=== PATIENT | female | born 1970 | race Two or more races ===

== ENCOUNTER 2016-12-09 08:19 | Inpatient (IN) | payer MEDICAID ==
[~2016-12-09] VITALS: Ht 142.2 cm; Wt 45.4 kg
[2016-12-09] VITALS (15 sets, daily range): BP systolic 101–146; BP diastolic 40–75
[~2016-12-09 08:19] MED LIST: ZOFRAN4 MG/5 ML ORAL
--- NOTE | 2016-12-09 09:03 | Emergency Room Report ---
History of Present Illness General Chief Complaint: Generalized Weakness Source: Patient, Family Member, EMS Present Illness HPI Patient presents acutely agitated and uncomfortable Full history was not able to obtain as the patient refuses to answer further questions Was able to obtain that she has not been taking her insulin she reports that she has been out of it and therefore cannot take it Patient had increased nausea Denies any chest pain or shortness of breath Denies any diarrhea Patient has diffuse abdominal cramping discomfort Denies any neck pain or photophobia Allergies: Coded Allergies: NO KNOWN ALLERGIES (Unverified Allergy, Unknown, 06/28/15) Patient History Past Medical History: see triage record Pertinent Family History: none Reviewed Nursing Documentation: PMH: Agreed, PSxH: Agreed Nursing Documentation-PMH Past Medical History: No History, Except For Hx Diabetes: Yes Hx Seizures: Yes Review of Systems All Other Systems: negative except mentioned in HPI Physical Exam Vital Signs Date Time Temp Pulse Resp B/P Pulse Ox O2 Delivery O2 Flow Rate FiO2 12/09/16 08:17 96.1 114 22 138/61 95 Room Air Sp02 EP Interpretation: reviewed, normal General Appearance: moderate distress - Patient appears acutely uncomfortable Head: normocephalic, atraumatic Eyes: bilateral eye PERRL ENT: dry mucus membranes, other - Extremely poor dentition with gingival irritation Neck: full range of motion, supple Respiratory: lungs clear Cardiovascular #1: regular rate, rhythm, no edema Gastrointestinal: non tender, soft Genitourinary: no CVA tenderness Musculoskeletal: normal inspection Neurologic: alert, oriented x3 Skin: no rash Lymphatic: no adenopathy Procedures Critical Care Time Critical Care Time 40 minutes for multiple re\re evaluations Critical presentation and clinical findings concerning for left ring pathology Not including any procedural time Medical Decision Making Diagnostic Impression: Primary Impression: DKA, type 1 Additional Impression: Hyperosmolarity due to secondary diabetes ER Course Patient presents with elevated glucose Is an insulin diabetic, reports that she has not been taking her medication for over the past one month at this time upon initial presentation appears in acute distress Aggressive IV hydration along with insulin therapy is initiated Patient showing signs of severe dehydration and kidney insufficiency as well At this time requiring further ICU admission Labs Test 12/09/16 08:50 12/09/16 09:45 12/09/16 10:22 White Blood Count 26.3 K/UL (4.8-10.8) Red Blood Count 4.49 M/UL (4.20-5.40) Hemoglobin 12.4 G/DL (12.0-16.0) Hematocrit 45.0 % (37.0-47.0) Mean Corpuscular Volume 100 FL (80-99) Mean Corpuscular Hemoglobin 27.7 PG (27.0-31.0) Mean Corpuscular Hemoglobin Concent 27.6 G/DL (32.0-36.0) Red Cell Distribution Width 15.8 % (11.6-14.8) Platelet Count 358 K/UL (150-450) Mean Platelet Volume 8.3 FL (6.5-10.1) Neutrophils (%) (Auto) % (45.0-75.0) Lymphocytes (%) (Auto) % (20.0-45.0) Monocytes (%) (Auto) % (1.0-10.0) Eosinophils (%) (Auto) % (0.0-3.0) Basophils (%) (Auto) % (0.0-2.0) Differential Total Cells Counted 100 Neutrophils % (Manual) 82 % (45-75) Lymphocytes % (Manual) 14 % (20-45) Monocytes % (Manual) 3 % (1-10) Eosinophils % (Manual) 0 % (0-3) Basophils % (Manual) 0 % (0-2) Band Neutrophils 1 % (0-8) Platelet Estimate Adequate Platelet Morphology Normal Hypochromasia 1+ Anisocytosis 1+ Macrocytosis 1+ Urine Color Pale yellow Urine Appearance Clear Urine pH 5 (4.5-8.0) Urine Specific [place] 1.015 (1.005-1.035) Urine Protein 3+ (NEGATIVE) Urine Glucose (UA) 4+ (NEGATIVE) Urine Ketones 4+ (NEGATIVE) Urine Occult Blood 3+ (NEGATIVE) Urine Nitrite Negative (NEGATIVE) Urine Bilirubin Negative (NEGATIVE) Urine Urobilinogen Normal MG/DL (0.0-1.0) Urine Leukocyte Esterase Negative (NEGATIVE) Urine RBC 5-10 /HPF (0 - 2) Urine WBC 0-2 /HPF (0 - 2) Urine Squamous Epithelial Cells Few /LPF (NONE/OCC) Urine Bacteria Few /HPF (NONE) Sodium Level 129 mEQ/L (135-145) Potassium Level 4.9 mEQ/L (3.4-4.9) Chloride Level 78 mEQ/L (98-107) Carbon Dioxide Level < 6 mEQ/L (20-30) Anion Gap 45 (5-15) Blood Urea Nitrogen 49 mg/dL (7-23) Creatinine 2.5 mg/dL (0.5-0.9) Estimat Glomerular Filtration Rate 20.9 mL/min (>60) Glucose Level 1041 mg/dL (74-106) Calcium Level 7.8 mg/dL (8.6-10.2) Total Bilirubin 0.2 mg/dL (0.0-1.2) Aspartate Amino Transf (AST/SGOT) 30 U/L (5-40) Alanine Aminotransferase (ALT/SGPT) 44 U/L (3-33) Alkaline Phosphatase 164 U/L (35-104) Total Protein 6.4 g/dL (6.6-8.7) Albumin 3.6 g/dL (3.5-5.2) Globulin 2.8 g/dL Albumin/Globulin Ratio 1.2 (1.0-2.7) Lipase 16 U/L (< 60) Arterial Blood pH 6.930 (7.350-7.450) Arterial Blood Partial Pressure CO2 12.8 mmHg (35.0-45.0) Arterial Blood Partial Pressure O2 142.8 mmHg (75.0-100.0) Arterial Blood HCO3 2.6 mmol/L (22.0-26.0) Arterial Blood Oxygen Saturation 97.0 % (92.0-98.0) Arterial Blood Base Excess -28.1 Drake Test Positive Rhythm Strip Diag. Results EP Interpretation: yes Rate: 100 Rhythm: no PVC's, no ectopy, other - sinus tach Last Vital Signs Date Time Temp Pulse Resp B/P Pulse Ox O2 Delivery O2 Flow Rate FiO2 12/09/16 08:32 96.1 22 138/61 95 Room Air 12/09/16 08:17 114 Status: improved Disposition: ADMITTED INPATIENT Condition: Critical STEPHAN SAHA D.O. Dec 09, 2016 09:03
[2016-12-09 09:07] LABS: APPEARANCE,URINE CLEAR; KETONES,URINE 4+ (NEGATIVE); LEUKOCYTE ESTERASE ,URINE NEGATIVE (NEGATIVE); NITRITE,URINE NEGATIVE (NEGATIVE); PH,URINE 5 (4.5-8.0); PROTEIN,URINE 3+ (NEGATIVE); UROBILINOGEN,URINE NORMAL MG/DL (0.0-1.0)
[2016-12-09 09:08] LABS: MEAN CORPUSCULAR HEMOGLOBIN 27.7 PG (27.0-31.0); MEAN CORPUSCULAR HGB CONC 27.6 G/DL (32.0-36.0); MEAN CORPUSCULAR VOLUME 100 FL (80-99); MEAN PLATELET VOLUME 8.3 FL (6.5-10.1); PLATELET COUNT 358 K/UL (150-450); RED BLOOD COUNT 4.49 M/UL (4.20-5.40); RED CELL DISTRIBUTION WIDTH 15.8 % (11.6-14.8)
[2016-12-09 09:12] LABS: WHITE BLOOD COUNT 26.3 K/UL (4.8-10.8)
[2016-12-09 09:21] LABS: BACTERIA,URINE FEW /HPF; SQUAMOUS EPITHELIAL CELL,UR FEW /LPF (NONE/OCC); WBC,URINE 0-2 /HPF (0 - 2)
[2016-12-09 09:59] LABS: ANISOCYTOSIS 1+; BAND NEUTROPHILS % (MANUAL) 1 % (0-8); BASOPHILS % (MANUAL) 0 % (0-2); EOSINOPHILS % (MANUAL) 0 % (0-3); HYPOCHROMASIA 1+; LYMPHOCYTES % (MANUAL) 14 % (20-45); MACROCYTES 1+; NEUTROPHILS % (MANUAL) 82 % (45-75); PLATELET ESTIMATE ADEQUATE; PLATELET MORPHOLOGY NORMAL; TOTAL CELLS COUNTED 100
[2016-12-09] MEDS ORDERED: UNOBMED (10:07)
[2016-12-09 10:20] LABS: ALANINE AMINOTRANSFERASE 44 U/L (3-33); ALBUMIN/GLOBULIN RATIO 1.2 (1.0-2.7); ANION GAP 45 (5-15); ASPARTATE AMINO TRANSFERASE 30 U/L (5-40); CALCIUM 7.8 mg/dL (8.6-10.2); CHLORIDE 78 mEQ/L (98-107); CREATININE 2.5 mg/dL (0.5-0.9); GLOMERULAR FILTRATION RATE 20.9 mL/min (>60); HEMOLYSIS 39; LIPASE 16 U/L (< 60); POTASSIUM 4.9 mEQ/L (3.4-4.9); SODIUM 129 mEQ/L (135-145); TOTAL PROTEIN 6.4 g/dL (6.6-8.7)
[2016-12-09 10:28] LABS: CARBON DIOXIDE < 6 mEQ/L (20-30)
[2016-12-09 10:40] LABS: ABG ALLEN TEST POSITIVE; ABG BASE EXCESS -28.1; ABG PCO2 12.8 mmHg (35.0-45.0)
[2016-12-09] MEDS ORDERED: DuoNeb 0.5-3(2.5)mg/3ml neb HHN PRN (11:30)
[2016-12-09] MEDS ORDERED: Miralax 17gm pkt ORAL PRN (11:30)
[2016-12-09] MEDS ORDERED: LORazepam Inj 2mg/ml 1ml IV PRN (11:30)
[2016-12-09] MEDS ORDERED: Morphine Sulfate 4mg/ml Inj IVP PRN (11:30)
[2016-12-09] MEDS ORDERED: Nitroglycerin Subl 0.4mg tab (Bottle Of 25) SL PRN (11:30)
[2016-12-09] MEDS: Insulin Rate Change 1 Each MISC PRN ×6 (17:01→23:02)
[2016-12-09] MEDS: Heparin 5000 units/ml inj SUBQ SCH (21:07)
--- NOTE | 2016-12-09 23:35 | History and Physical ---
History of Present Illness General Date patient seen: Dec 09, 2016 Reason for Hospitalization: Generalized Weakness Present Illness HPI 46 year old female with hx of DM and DKA, presented to ER with CC of nausea acutely. She was agitated ER. She was found to have DKA and hyperosmolar coma and admitted to ICU with insulin drip. Allergies: Coded Allergies: NO KNOWN ALLERGIES (Unverified Allergy, Unknown, 06/28/15) Medication History Miscellaneous Medications Unable to Obtain Medications (Unable To Obtain Meds), (Reported) Discontinued Medications Ondansetron Hcl (Zofran), 4 MG ORAL Q6H Discontinued Reason: Medication dose changed Patient History Healthcare decision maker Resuscitation status Full Code Advanced Directive on File Past Medical/Surgical History Past Medical/Surgical History: (1) Diabetes mellitus Review of Systems All Other Systems: negative except mentioned in HPI Physical Exam General Appearance: WD/WN Lines, tubes and drains: peripheral HEENT: normocephalic, atraumatic Neck: non-tender, normal alignment Respiratory/Chest: chest wall non-tender, lungs clear Cardiovascular/Chest: normal rate Abdomen: normal bowel sounds, non tender Genitourinary/Rectal: normal genital exam, normal rectal exam Last 24 Hour Vital Signs Date Time Temp Pulse Resp B/P Pulse Ox O2 Delivery O2 Flow Rate FiO2 12/09/16 23:00 101 15 144/67 98 Room Air 12/09/16 22:05 105 15 144/75 98 Room Air 12/09/16 21:00 102 14 143/70 98 Room Air 12/09/16 20:00 101 12/09/16 20:00 98.1 101 17 146/65 96 Room Air 12/09/16 19:00 103 19 103/60 98 Room Air 12/09/16 18:00 104 16 127/69 98 Room Air 12/09/16 17:00 14 110/60 97 Room Air 12/09/16 16:00 107 12/09/16 15:58 97.2 106 14 126/63 98 Room Air 12/09/16 15:00 106 20 123/64 100 Room Air 12/09/16 14:00 100 22 137/67 100 Room Air 12/09/16 13:00 100 12/09/16 13:00 97.0 100 23 128/64 96 Room Air 12/09/16 12:48 101 20 111/51 100 Room Air 12/09/16 12:33 101 22 118/57 100 Room Air 12/09/16 11:32 96.1 101 22 117/69 96 Room Air 12/09/16 09:27 96.1 104 26 101/40 95 Room Air 12/09/16 08:32 96.1 22 138/61 95 Room Air 12/09/16 08:17 96.1 114 22 138/61 95 Room Air Laboratory Tests Test 12/09/16 08:50 12/09/16 09:45 12/09/16 10:22 White Blood Count 26.3 K/UL (4.8-10.8) *H Red Blood Count 4.49 M/UL (4.20-5.40) Hemoglobin 12.4 G/DL (12.0-16.0) Hematocrit 45.0 % (37.0-47.0) Mean Corpuscular Volume 100 FL (80-99) H Mean Corpuscular Hemoglobin 27.7 PG (27.0-31.0) Mean Corpuscular Hemoglobin Concent 27.6 G/DL (32.0-36.0) L Red Cell Distribution Width 15.8 % (11.6-14.8) H Platelet Count 358 K/UL (150-450) Mean Platelet Volume 8.3 FL (6.5-10.1) Neutrophils (%) (Auto) % (45.0-75.0) Lymphocytes (%) (Auto) % (20.0-45.0) Monocytes (%) (Auto) % (1.0-10.0) Eosinophils (%) (Auto) % (0.0-3.0) Basophils (%) (Auto) % (0.0-2.0) Differential Total Cells Counted 100 Neutrophils % (Manual) 82 % (45-75) H Lymphocytes % (Manual) 14 % (20-45) L Monocytes % (Manual) 3 % (1-10) Eosinophils % (Manual) 0 % (0-3) Basophils % (Manual) 0 % (0-2) Band Neutrophils 1 % (0-8) Platelet Estimate Adequate Platelet Morphology Normal Hypochromasia 1+ Anisocytosis 1+ Macrocytosis 1+ Urine Color Pale yellow Urine Appearance Clear Urine pH 5 (4.5-8.0) Urine Specific [place] 1.015 (1.005-1.035) Urine Protein 3+ (NEGATIVE) H Urine Glucose (UA) 4+ (NEGATIVE) H Urine Ketones 4+ (NEGATIVE) H Urine Occult Blood 3+ (NEGATIVE) H Urine Nitrite Negative (NEGATIVE) Urine Bilirubin Negative (NEGATIVE) Urine Urobilinogen Normal MG/DL (0.0-1.0) Urine Leukocyte Esterase Negative (NEGATIVE) Urine RBC 5-10 /HPF (0 - 2) H Urine WBC 0-2 /HPF (0 - 2) Urine Squamous Epithelial Cells Few /LPF (NONE/OCC) Urine Bacteria Few /HPF (NONE) Sodium Level 129 mEQ/L (135-145) L Potassium Level 4.9 mEQ/L (3.4-4.9) Chloride Level 78 mEQ/L (98-107) L Carbon Dioxide Level < 6 mEQ/L (20-30) *L Anion Gap 45 (5-15) H Blood Urea Nitrogen 49 mg/dL (7-23) H Creatinine 2.5 mg/dL (0.5-0.9) H Estimat Glomerular Filtration Rate 20.9 mL/min (>60) Glucose Level 1041 mg/dL (74-106) *H Calcium Level 7.8 mg/dL (8.6-10.2) L Total Bilirubin 0.2 mg/dL (0.0-1.2) Aspartate Amino Transf (AST/SGOT) 30 U/L (5-40) Alanine Aminotransferase (ALT/SGPT) 44 U/L (3-33) H Alkaline Phosphatase 164 U/L (35-104) H Total Protein 6.4 g/dL (6.6-8.7) L Albumin 3.6 g/dL (3.5-5.2) Globulin 2.8 g/dL Albumin/Globulin Ratio 1.2 (1.0-2.7) Lipase 16 U/L (< 60) Arterial Blood pH 6.930 (7.350-7.450) Arterial Blood Partial Pressure CO2 12.8 mmHg (35.0-45.0) *L Arterial Blood Partial Pressure O2 142.8 mmHg (75.0-100.0) H Arterial Blood HCO3 2.6 mmol/L (22.0-26.0) L Arterial Blood Oxygen Saturation 97.0 % (92.0-98.0) Arterial Blood Base Excess -28.1 Drake Test Positive Height (Feet): 4 Height (Inches): 8.00 Weight (Pounds): 100 Medications Current Medications Medications (Trade) Dose Ordered Sig/Umesh Route PRN Reason Start Time Stop Time Status Last Admin Dose Admin Acetaminophen (Tylenol) 650 mg Q4H PRN ORAL T>100.5 12/09/16 11:30 01/08/17 11:29 Albuterol/ Ipratropium (DuoNeb 0.5-3(2.5)mg/3ml) 3 ml Q4H PRN HHN Shortness of Breath 12/09/16 11:30 12/14/16 11:29 Dextrose (Dextrose 50%) STAT PRN IV Hypoglycemia 12/09/16 11:30 01/08/17 11:29 Heparin Sodium (Porcine) (Heparin 5000 units/ml) 5,000 units EVERY 12 HOURS SUBQ 12/09/16 21:00 01/08/17 20:59 12/09/16 21:07 Insulin Human Regular (NovoLIN R) 5 units PRN PRN IV BS 200-299 12/09/16 11:30 01/08/17 11:29 Insulin Human Regular (NovoLIN R) 10 units PRN PRN IV BS=>300 12/09/16 11:30 01/08/17 11:29 12/09/16 17:04 Insulin Human Regular/Sodium Chloride (NovoLIN R/ Sodium Chloride) 101 ml @ 0 mls/hr Q24H IV 12/09/16 22:00 01/08/17 21:59 12/09/16 22:03 Lorazepam (Ativan 2mg/ml 1ml) 2 mg Q2H PRN IV agitation 12/09/16 11:30 12/16/16 11:29 Miscellaneous Medication (Insulin Rate Change) 1 ea PRN PRN MISC To Patient Comfort 12/09/16 11:30 01/08/17 11:29 12/09/16 23:02 Morphine Sulfate (Morphine Sulfate) 4 mg Q4H PRN IVP Severe Pain (Pain Scale 7-10) 12/09/16 11:30 12/16/16 11:29 Nitroglycerin (Ntg) 0.4 mg Q5M PRN SL Prn Chest Pain 12/09/16 11:30 01/08/17 11:29 Ondansetron HCl (Zofran) 4 mg Q6H PRN IVP Nausea & Vomiting 12/09/16 11:30 01/08/17 11:29 Pantoprazole 40 mg 40 mg DAILY IVP 12/10/16 09:00 01/09/17 08:59 Polyethylene Glycol (Miralax) 17 gm DAILYPRN PRN ORAL Constipation 12/09/16 11:30 01/08/17 11:29 Sodium Chloride (Sodium Chloride 1000ml bag) 1,000 ml @ 150 mls/hr Q6H40M IV 12/09/16 12:30 01/08/17 12:29 12/09/16 19:14 Assessment/Plan Problem List: (1) Hyperosmolarity due to secondary diabetes ICD Codes: E13.00 - Other specified diabetes mellitus with hyperosmolarity without nonketotic hyperglycemic-hyperosmolarcoma (NKHHC) SNOMED: 4293258, 45930693 (2) DKA, type 1 ICD Codes: E10.10 - Type 1 diabetes mellitus with ketoacidosis without coma SNOMED: 407689461, 97878106 (3) Non-compliance ICD Codes: Z91.19 - Patient's noncompliance with other medical treatment and regimen SNOMED: 3435242 Assessment/Plan IV fluids IV insulin npo antiemetics sedatives dvt prophylaxis LIZZIE BOWERS Dec 09, 2016 23:35
[2016-12-10] VITALS (24 sets, daily range): BP systolic 110–202; BP diastolic 14–88
[2016-12-10] MEDS: Insulin Rate Change 1 Each MISC PRN ×9 (04:35→23:43)
[2016-12-10 05:31] LABS: MEAN CORPUSCULAR HEMOGLOBIN 28.4 PG (27.0-31.0); MEAN CORPUSCULAR HGB CONC 32.1 G/DL (32.0-36.0); MEAN CORPUSCULAR VOLUME 89 FL (80-99); MEAN PLATELET VOLUME 6.6 FL (6.5-10.1); PLATELET COUNT 221 K/UL (150-450); RED BLOOD COUNT 3.77 M/UL (4.20-5.40); RED CELL DISTRIBUTION WIDTH 14.4 % (11.6-14.8)
[2016-12-10 05:58] LABS: BILIRUBIN,DIRECT 0.1 mg/dL (0.1-0.3); PHOSPHORUS 1.9 mg/dL (2.5-4.8); TOTAL PROTEIN 5.1 g/dL (6.6-8.7)
[2016-12-10 06:01] LABS: PROTHROMBIN TIME 10.3 SEC (9.30-11.50)
[2016-12-10 06:06] LABS: ALBUMIN/GLOBULIN RATIO 1.5 (1.0-2.7); CALCIUM 7.3 mg/dL (8.6-10.2); CREATININE 1.4 mg/dL (0.5-0.9); GLOMERULAR FILTRATION RATE 40.7 mL/min (>60)
[2016-12-10 06:11] LABS: POTASSIUM 2.6 mEQ/L (3.4-4.9)
[2016-12-10 07:47] LABS: BAND NEUTROPHILS % (MANUAL) 3 % (0-8); BASOPHILS % (MANUAL) 0 % (0-2); EOSINOPHILS % (MANUAL) 0 % (0-3); HYPOCHROMASIA 1+; LYMPHOCYTES % (MANUAL) 9 % (20-45); NEUTROPHILS % (MANUAL) 82 % (45-75); PLATELET ESTIMATE ADEQUATE; PLATELET MORPHOLOGY NORMAL; TOTAL CELLS COUNTED 100
[2016-12-10] MEDS ORDERED: D5 1/2NS 1,000 ML IV SCH (08:30)
[2016-12-10 08:55] LABS: ABG BASE EXCESS -9.2; ABG PCO2 19.1 mmHg (35.0-45.0)
[2016-12-10 08:56] LABS: ABG ALLEN TEST POSITIVE
[2016-12-10] MEDS ORDERED: Potassium Chloride 40 MEQ in Sodium Chloride 550 ML IV SCH (09:00)
[2016-12-10] MEDS ORDERED: Pantoprazole Inj IVP SCH (09:00)
[2016-12-10] MEDS: Heparin 5000 units/ml inj SUBQ SCH ×2 (09:44→20:58)
--- NOTE | 2016-12-10 10:33 | Pulmonolgy Critical Care Note ---
Critical Care - Asmt/Plan Problems: (1) Hyperosmolarity due to secondary diabetes (2) DKA, type 1 (3) Diabetes mellitus (4) Non-compliance Respiratory: monitor respiratory rate, adjust FIO2 Cardiac: continue to monitor HR/BP Renal: F/U I&O, keep IV fluid, other - K, PHos, mg supplement Infectious Disease: check cultures Gastrointestinal: start feedings - as tolerated Endocrine: monitor blood sugar Hematologic: monitor H/H, transfuse if hgb<8.5 Neurologic: PRN Ativan, PRN Morphine, keep patient comfortable Critical Care - Objective Last 24 Hour Vital Signs Date Time Temp Pulse Resp B/P Pulse Ox O2 Delivery O2 Flow Rate FiO2 12/10/16 10:00 110 15 174/58 100 Room Air 12/10/16 09:00 102 15 202/78 100 Room Air 12/10/16 08:00 97.9 100 15 174/64 100 Room Air 12/10/16 07:00 97 14 142/73 100 Room Air 12/10/16 06:00 95 13 145/66 99 Room Air 12/10/16 05:00 105 17 125/73 98 Room Air 12/10/16 04:00 103 12/10/16 04:00 98.3 103 15 151/84 100 Room Air 12/10/16 03:00 95 15 125/68 99 Room Air 12/10/16 02:00 101 16 110/59 97 Room Air 12/10/16 01:00 102 18 118/14 97 Room Air 12/10/16 00:00 97.9 101 13 145/71 98 Room Air 12/10/16 00:00 101 12/09/16 23:00 101 15 144/67 98 Room Air 12/09/16 22:05 105 15 144/75 98 Room Air 12/09/16 21:00 102 14 143/70 98 Room Air 12/09/16 20:00 101 12/09/16 20:00 98.1 101 17 146/65 96 Room Air 12/09/16 19:00 103 19 103/60 98 Room Air 12/09/16 18:00 104 16 127/69 98 Room Air 12/09/16 17:00 14 110/60 97 Room Air 12/09/16 16:00 107 12/09/16 15:58 97.2 106 14 126/63 98 Room Air 12/09/16 15:00 106 20 123/64 100 Room Air 12/09/16 14:00 100 22 137/67 100 Room Air 12/09/16 13:00 100 12/09/16 13:00 97.0 100 23 128/64 96 Room Air 12/09/16 12:48 101 20 111/51 100 Room Air 12/09/16 12:33 101 22 118/57 100 Room Air 12/09/16 11:32 96.1 101 22 117/69 96 Room Air Status: awake Condition: critical HEENT: atraumatic Neck: full ROM Heart: HR/BP stable, HR/BP unstable Abdomen: non-tender, feeding tube Extremities: edema Accucheck: 214 Critical Care - Subjective ROS Limited/Unobtainable: No ICU Day: 2 Condition: critical Fluids: d5 1/2 NS 150 cc/hour I&O: Intake and Output 12/09/16 12/10/16 19:00 07:00 Intake Total 2852.5 ml 1666.0 ml Output Total 2000 ml Balance 2852.5 ml -334.0 ml Intake Oral 0 ml IV Total 852.5 ml 1666.0 ml Other 2000 ml Output Urine Total 2000 ml # Voids 2 4 Labs: Laboratory Tests Test 12/10/16 05:00 12/10/16 05:10 12/10/16 08:45 12/10/16 08:50 White Blood Count 19.0 K/UL (4.8-10.8) H Red Blood Count 3.77 M/UL (4.20-5.40) L Hemoglobin 10.7 G/DL (12.0-16.0) L Hematocrit 33.4 % (37.0-47.0) L Mean Corpuscular Volume 89 FL (80-99) # Mean Corpuscular Hemoglobin 28.4 PG (27.0-31.0) Mean Corpuscular Hemoglobin Concent 32.1 G/DL (32.0-36.0) Red Cell Distribution Width 14.4 % (11.6-14.8) Platelet Count 221 K/UL (150-450) Mean Platelet Volume 6.6 FL (6.5-10.1) Neutrophils (%) (Auto) % (45.0-75.0) Lymphocytes (%) (Auto) % (20.0-45.0) Monocytes (%) (Auto) % (1.0-10.0) Eosinophils (%) (Auto) % (0.0-3.0) Basophils (%) (Auto) % (0.0-2.0) Differential Total Cells Counted 100 Neutrophils % (Manual) 82 % (45-75) H Lymphocytes % (Manual) 9 % (20-45) L Monocytes % (Manual) 6 % (1-10) Eosinophils % (Manual) 0 % (0-3) Basophils % (Manual) 0 % (0-2) Band Neutrophils 3 % (0-8) Platelet Estimate Adequate Platelet Morphology Normal Hypochromasia 1+ Prothrombin Time 10.3 SEC (9.30-11.50) Prothromb Time International Ratio 1.0 (0.9-1.1) Activated Partial Thromboplast Time 22 SEC (23-33) L Sodium Level 143 mEQ/L (135-145) # Potassium Level 2.6 mEQ/L (3.4-4.9) *L Chloride Level 105 mEQ/L (98-107) Carbon Dioxide Level 17 mEQ/L (20-30) L Anion Gap 21 (5-15) H Blood Urea Nitrogen 32 mg/dL (7-23) H Creatinine 1.4 mg/dL (0.5-0.9) H Estimat Glomerular Filtration Rate 40.7 mL/min (>60) Glucose Level 99 mg/dL (74-106) # Calcium Level 7.3 mg/dL (8.6-10.2) L Phosphorus Level 1.9 mg/dL (2.5-4.8) L Total Bilirubin 0.4 mg/dL (0.0-1.2) Direct Bilirubin 0.1 mg/dL (0.1-0.3) Aspartate Amino Transf (AST/SGOT) 44 U/L (5-40) H Alanine Aminotransferase (ALT/SGPT) 36 U/L (3-33) H Alkaline Phosphatase 101 U/L (35-104) Total Protein 5.0 g/dL (6.6-8.7) L Albumin 3.0 g/dL (3.5-5.2) L Globulin 2.0 g/dL Albumin/Globulin Ratio 1.5 (1.0-2.7) Magnesium Level 1.0 mg/dL (1.7-2.5) L Hemoglobin A1c 13.4 % (< 6.0) H Lactic Acid Level 0.70 mmol/L (0.66-2.22) Arterial Blood pH 7.440 (7.350-7.450) Arterial Blood Partial Pressure CO2 19.1 mmHg (35.0-45.0) *L Arterial Blood Partial Pressure O2 175.2 mmHg (75.0-100.0) H Arterial Blood HCO3 12.8 mmol/L (22.0-26.0) L Arterial Blood Oxygen Saturation 98.5 % (92.0-98.0) H Arterial Blood Base Excess -9.2 Drake Test Positive LIZZIE BOWERS Dec 10, 2016 10:32
[2016-12-10] MEDS ORDERED: POTASSIUM PHOSPHATE IV ONE ×2 (11:00→12:30)
[2016-12-10] MEDS ORDERED: D5W IV ONE ×2 (11:00→12:30)
[2016-12-10] MEDS ORDERED: Labetalol 5mg/ml 20ml vial IV PRN ×2 (15:45→16:00)
[2016-12-10] MEDS: Benazepril 10mg tab ORAL SCH (16:00)
[2016-12-10] MEDS: D5 1/2NS w/KCl 40meq 1000ml 1,000 ML IV SCH (16:00)
[2016-12-10 17:47] LABS: BASOPHILS % (AUTO) 0.7 % (0.0-2.0); EOSINOPHILS % (AUTO) 0.1 % (0.0-3.0); LYMPHOCYTES % (AUTO) 13.1 % (20.0-45.0); MEAN CORPUSCULAR HEMOGLOBIN 28.1 PG (27.0-31.0); MEAN CORPUSCULAR HGB CONC 32.3 G/DL (32.0-36.0); MEAN CORPUSCULAR VOLUME 87 FL (80-99); MEAN PLATELET VOLUME 7.6 FL (6.5-10.1); MONOCYTES % (AUTO) 4.4 % (1.0-10.0); NEUTROPHILS % (AUTO) 81.8 % (45.0-75.0); PLATELET COUNT 218 K/UL (150-450); RED BLOOD COUNT 3.83 M/UL (4.20-5.40); RED CELL DISTRIBUTION WIDTH 14.6 % (11.6-14.8); WHITE BLOOD COUNT 17.5 K/UL (4.8-10.8)
[2016-12-10 17:48] LABS: ALBUMIN/GLOBULIN RATIO 1.6 (1.0-2.7); CALCIUM 7.6 mg/dL (8.6-10.2); CREATININE 1.4 mg/dL (0.5-0.9); GLOMERULAR FILTRATION RATE 40.7 mL/min (>60); MAGNESIUM 2.6 mg/dL (1.7-2.5); PHOSPHORUS 3.6 mg/dL (2.5-4.8); POTASSIUM 3.7 mEQ/L (3.4-4.9); TOTAL PROTEIN 5.2 g/dL (6.6-8.7)
[2016-12-11] VITALS (24 sets, daily range): BP systolic 102–163; BP diastolic 56–145
[2016-12-11] MEDS: Insulin Rate Change 1 Each MISC PRN ×13 (01:01→23:27)
[2016-12-11 04:29] LABS: BASOPHILS % (AUTO) 0.5 % (0.0-2.0); EOSINOPHILS % (AUTO) 0.1 % (0.0-3.0); LYMPHOCYTES % (AUTO) 17.7 % (20.0-45.0); MEAN CORPUSCULAR HEMOGLOBIN 28.7 PG (27.0-31.0); MEAN CORPUSCULAR HGB CONC 32.8 G/DL (32.0-36.0); MEAN CORPUSCULAR VOLUME 88 FL (80-99); MEAN PLATELET VOLUME 6.9 FL (6.5-10.1); MONOCYTES % (AUTO) 5.1 % (1.0-10.0); NEUTROPHILS % (AUTO) 76.6 % (45.0-75.0); PLATELET COUNT 214 K/UL (150-450); RED BLOOD COUNT 4.15 M/UL (4.20-5.40); RED CELL DISTRIBUTION WIDTH 14.6 % (11.6-14.8); WHITE BLOOD COUNT 13.1 K/UL (4.8-10.8)
[2016-12-11 04:51] LABS: ALBUMIN/GLOBULIN RATIO 1.2 (1.0-2.7); CALCIUM 8.3 mg/dL (8.6-10.2); CREATININE 1.2 mg/dL (0.5-0.9); GLOMERULAR FILTRATION RATE 48.6 mL/min (>60); MAGNESIUM 1.9 mg/dL (1.7-2.5); PHOSPHORUS 2.2 mg/dL (2.5-4.8); POTASSIUM 3.7 mEQ/L (3.4-4.9); TOTAL PROTEIN 5.9 g/dL (6.6-8.7)
[2016-12-11] MEDS: D5 1/2NS w/KCl 40meq 1000ml 1,000 ML IV SCH ×2 (05:47→19:37)
[2016-12-11] MEDS: Heparin 5000 units/ml inj SUBQ SCH ×2 (08:58→21:25)
[2016-12-11] MEDS: Benazepril 10mg tab ORAL SCH (09:18)
[2016-12-11] MEDS ORDERED: D5 1/2NS 1000ml IV ONE (09:36)
--- NOTE | 2016-12-11 11:03 | Pulmonolgy Critical Care Note ---
Critical Care - Asmt/Plan Problems: (1) Hyperosmolarity due to secondary diabetes (2) DKA, type 1 (3) Diabetes mellitus (4) Non-compliance Respiratory: monitor respiratory rate Cardiac: continue to monitor HR/BP Renal: F/U I&O, keep IV fluid, other - phos supplement Infectious Disease: check cultures Gastrointestinal: hold feedings Endocrine: monitor blood sugar, check HgA1C Neurologic: PRN Morphine Affect: PRN ativan Prophylaxis: Heparin Disposition: keep in ICU Discussed with: nurses, consultants Critical Care - Objective Last 24 Hour Vital Signs Date Time Temp Pulse Resp B/P Pulse Ox O2 Delivery O2 Flow Rate FiO2 12/11/16 10:00 94 18 117/56 99 Room Air 12/11/16 09:18 141/74 12/11/16 09:00 92 16 141/74 98 Room Air 12/11/16 08:00 94 12/11/16 08:00 98.2 89 13 127/64 100 Room Air 12/11/16 07:00 87 13 163/145 100 Room Air 12/11/16 06:00 83 14 151/87 100 Room Air 12/11/16 05:00 85 14 102/57 100 Room Air 12/11/16 04:00 98.9 86 14 122/65 100 Room Air 12/11/16 04:00 86 12/11/16 03:00 89 14 136/68 100 Room Air 12/11/16 02:00 90 16 137/69 100 Room Air 12/11/16 01:00 89 16 132/69 100 Room Air 12/11/16 00:00 99.2 89 20 140/69 100 Room Air 12/11/16 00:00 89 12/10/16 23:00 89 16 119/61 100 Room Air 12/10/16 22:00 86 14 119/64 100 Room Air 12/10/16 21:00 89 14 150/69 99 Room Air 12/10/16 20:00 88 12/10/16 20:00 98.6 88 11 117/71 100 Room Air 12/10/16 19:00 96 16 132/72 100 Room Air 12/10/16 18:00 97 13 160/79 100 Room Air 12/10/16 17:00 93 16 151/65 100 Room Air 12/10/16 16:00 98.8 96 17 187/82 100 Room Air 12/10/16 16:00 175/88 12/10/16 16:00 92 12/10/16 15:00 102 14 175/88 100 Room Air 12/10/16 14:00 101 15 183/76 100 Room Air 12/10/16 13:00 108 15 134/56 100 Room Air 12/10/16 12:00 98.1 102 17 177/77 100 Room Air 12/10/16 12:00 108 12/10/16 11:00 102 16 159/61 100 Room Air Status: awake Condition: critical Lungs: chest wall tender Heart: HR/BP stable, regular Abdomen: soft, active bowel sounds, feeding tube Extremities: edema Decubiti: location Micro: Microbiology Date/Time Source Procedure Growth Status 12/09/16 12:10 Blood Blood Culture - Preliminary NO GROWTH AFTER 24 HOURS Resulted 12/09/16 12:00 Blood Blood Culture - Preliminary NO GROWTH AFTER 24 HOURS Resulted 12/09/16 10:05 Nasal Nares MRSA Culture - Final NO METHICILLIN RESISTANT STAPH AUREUS... Complete 12/09/16 10:05 Rectum VRE Culture - Final Enterococcus Faecalis - Vre Complete Accucheck: 254 Critical Care - Subjective ROS Limited/Unobtainable: No ICU Day: 3 Condition: critical EKG Rhythm: Sinus Rhythm I&O: Intake and Output 12/10/16 12/11/16 19:00 07:00 Intake Total 1236.8 ml 1037.0 ml Output Total 1400 ml Balance -163.2 ml 1037.0 ml Intake Oral 240 ml 120 ml IV Total 996.8 ml 917.0 ml Output Urine Total 1400 ml # Voids 4 2 # Bowel Movements 1 1 Labs: Laboratory Tests Test 12/10/16 17:00 12/11/16 04:00 White Blood Count 17.5 K/UL (4.8-10.8) H 13.1 K/UL (4.8-10.8) H Red Blood Count 3.83 M/UL (4.20-5.40) L 4.15 M/UL (4.20-5.40) L Hemoglobin 10.8 G/DL (12.0-16.0) L 11.9 G/DL (12.0-16.0) L Hematocrit 33.4 % (37.0-47.0) L 36.3 % (37.0-47.0) L Mean Corpuscular Volume 87 FL (80-99) 88 FL (80-99) Mean Corpuscular Hemoglobin 28.1 PG (27.0-31.0) 28.7 PG (27.0-31.0) Mean Corpuscular Hemoglobin Concent 32.3 G/DL (32.0-36.0) 32.8 G/DL (32.0-36.0) Red Cell Distribution Width 14.6 % (11.6-14.8) 14.6 % (11.6-14.8) Platelet Count 218 K/UL (150-450) 214 K/UL (150-450) Mean Platelet Volume 7.6 FL (6.5-10.1) 6.9 FL (6.5-10.1) Neutrophils (%) (Auto) 81.8 % (45.0-75.0) H 76.6 % (45.0-75.0) H Lymphocytes (%) (Auto) 13.1 % (20.0-45.0) L 17.7 % (20.0-45.0) L Monocytes (%) (Auto) 4.4 % (1.0-10.0) 5.1 % (1.0-10.0) Eosinophils (%) (Auto) 0.1 % (0.0-3.0) 0.1 % (0.0-3.0) Basophils (%) (Auto) 0.7 % (0.0-2.0) 0.5 % (0.0-2.0) Sodium Level 138 mEQ/L (135-145) 138 mEQ/L (135-145) Potassium Level 3.7 mEQ/L (3.4-4.9) 3.7 mEQ/L (3.4-4.9) Chloride Level 98 mEQ/L (98-107) 99 mEQ/L (98-107) Carbon Dioxide Level 21 mEQ/L (20-30) 19 mEQ/L (20-30) L Anion Gap 19 (5-15) H 20 (5-15) H Blood Urea Nitrogen 21 mg/dL (7-23) 14 mg/dL (7-23) Creatinine 1.4 mg/dL (0.5-0.9) H 1.2 mg/dL (0.5-0.9) H Estimat Glomerular Filtration Rate 40.7 mL/min (>60) 48.6 mL/min (>60) Glucose Level 146 mg/dL (74-106) H 168 mg/dL (74-106) H Calcium Level 7.6 mg/dL (8.6-10.2) L 8.3 mg/dL (8.6-10.2) L Phosphorus Level 3.6 mg/dL (2.5-4.8) 2.2 mg/dL (2.5-4.8) L Magnesium Level 2.6 mg/dL (1.7-2.5) H 1.9 mg/dL (1.7-2.5) Total Bilirubin 0.4 mg/dL (0.0-1.2) 0.7 mg/dL (0.0-1.2) Aspartate Amino Transf (AST/SGOT) 43 U/L (5-40) H 44 U/L (5-40) H Alanine Aminotransferase (ALT/SGPT) 35 U/L (3-33) H 37 U/L (3-33) H Alkaline Phosphatase 105 U/L (35-104) H 116 U/L (35-104) H Total Protein 5.2 g/dL (6.6-8.7) L 5.9 g/dL (6.6-8.7) L Albumin 3.2 g/dL (3.5-5.2) L 3.3 g/dL (3.5-5.2) L Globulin 2.0 g/dL 2.6 g/dL Albumin/Globulin Ratio 1.6 (1.0-2.7) 1.2 (1.0-2.7) LIZZIE BOWERS Dec 11, 2016 11:03
[2016-12-11 11:18] LABS: OTHERS PATHOLOGIST COMMENT
[2016-12-11] MEDS ORDERED: Potassium Phosphate 30 MM in Sodium Chloride 550 ML IV ONE (13:00)
[2016-12-12] VITALS (18 sets, daily range): BP systolic 109–160; BP diastolic 64–87
[2016-12-12] MEDS: Insulin Rate Change 1 Each MISC PRN ×5 (00:18→09:10)
[2016-12-12 04:28] LABS: BASOPHILS % (AUTO) 1.2 % (0.0-2.0); EOSINOPHILS % (AUTO) 0.7 % (0.0-3.0); LYMPHOCYTES % (AUTO) 31.7 % (20.0-45.0); MEAN CORPUSCULAR HEMOGLOBIN 28.3 PG (27.0-31.0); MEAN CORPUSCULAR HGB CONC 32.4 G/DL (32.0-36.0); MEAN CORPUSCULAR VOLUME 87 FL (80-99); MONOCYTES % (AUTO) 5.7 % (1.0-10.0); NEUTROPHILS % (AUTO) 60.8 % (45.0-75.0); PLATELET COUNT 204 K/UL (150-450); RED BLOOD COUNT 4.21 M/UL (4.20-5.40); RED CELL DISTRIBUTION WIDTH 15.1 % (11.6-14.8); WHITE BLOOD COUNT 9.5 K/UL (4.8-10.8)
[2016-12-12 04:46] LABS: ALBUMIN/GLOBULIN RATIO 1.2 (1.0-2.7); CALCIUM 8.5 mg/dL (8.6-10.2); CREATININE 1.2 mg/dL (0.5-0.9); GLOMERULAR FILTRATION RATE 48.6 mL/min (>60); MAGNESIUM 1.2 mg/dL (1.7-2.5); PHOSPHORUS 2.8 mg/dL (2.5-4.8); POTASSIUM 4.4 mEQ/L (3.4-4.9)
[2016-12-12] MEDS: D5 1/2NS w/KCl 40meq 1000ml 1,000 ML IV SCH (08:33)
[2016-12-12] MEDS: Benazepril 10mg tab ORAL SCH (08:47)
[2016-12-12] MEDS: Heparin 5000 units/ml inj SUBQ SCH ×2 (08:48→22:17)
--- NOTE | 2016-12-12 11:49 | Pulmonology Progress Note ---
Assessment/Plan Problems: (1) Hyperosmolarity due to secondary diabetes (2) DKA, type 1 (3) Non-compliance Assessment/Plan dc IV insulin sliding scale med/surg Subjective ROS Limited/Unobtainable: No Constitutional: Reports: no symptoms Allergies: Coded Allergies: NO KNOWN ALLERGIES (Unverified Allergy, Unknown, 06/28/15) Objective Last 24 Hour Vital Signs Date Time Temp Pulse Resp B/P Pulse Ox O2 Delivery O2 Flow Rate FiO2 12/12/16 11:00 99 21 139/79 98 Room Air 12/12/16 10:00 100 22 128/68 98 Room Air 12/12/16 09:00 101 22 139/79 97 Room Air 12/12/16 08:47 124/75 12/12/16 08:00 98 12/12/16 08:00 98.2 99 19 124/75 97 Room Air 12/12/16 07:00 95 17 109/64 97 Room Air 12/12/16 06:00 94 16 148/84 100 Room Air 12/12/16 05:00 100 16 155/74 100 Room Air 12/12/16 04:00 99 12/12/16 04:00 98.0 99 20 160/82 100 Room Air 12/12/16 03:00 100 20 130/77 100 Room Air 12/12/16 01:00 90 20 133/75 100 Room Air 12/12/16 00:00 94 12/12/16 00:00 98.2 94 19 150/82 100 Room Air 12/11/16 23:00 96 19 146/85 100 Room Air 12/11/16 22:00 93 18 126/77 100 Room Air 12/11/16 21:00 99 17 122/79 100 Room Air 12/11/16 20:00 98.1 95 18 139/75 100 Room Air 12/11/16 20:00 95 12/11/16 19:00 94 17 125/63 100 Room Air 12/11/16 18:00 99 16 118/63 100 Room Air 12/11/16 17:00 93 16 121/76 100 Room Air 12/11/16 16:00 93 12/11/16 16:00 98.4 91 19 125/62 100 Room Air 12/11/16 15:00 96 20 123/77 100 Room Air 12/11/16 14:00 94 18 141/73 100 Room Air 12/11/16 13:00 104 18 143/69 99 Room Air 12/11/16 12:00 94 12/11/16 12:00 98.8 95 17 130/81 100 Room Air Intake and Output 12/11/16 12/12/16 19:00 07:00 Intake Total 1698.5 ml 1017.5 ml Output Total 1800 ml Balance 1698.5 ml -782.5 ml Intake Oral 680 ml 90 ml IV Total 1018.5 ml 927.5 ml Output Urine Total 1800 ml # Voids 2 General Appearance: WD/WN HEENT: normocephalic, atraumatic Respiratory/Chest: chest wall non-tender, lungs clear Breasts: no masses Abdomen: normal bowel sounds Genitourinary: normal external genitalia Extremities: no clubbing Skin: no lesions Microbiology Date/Time Source Procedure Growth Status 12/09/16 12:10 Blood Blood Culture - Preliminary NO GROWTH AFTER 48 HOURS Resulted 12/09/16 12:00 Blood Blood Culture - Preliminary NO GROWTH AFTER 48 HOURS Resulted Laboratory Tests 12/12/16 03:50: White Blood Count 9.5, Red Blood Count 4.21, Hemoglobin 11.9L, Hematocrit 36.8L , Mean Corpuscular Volume 87, Mean Corpuscular Hemoglobin 28.3, Mean Corpuscular Hemoglobin Concent 32.4, Red Cell Distribution Width 15.1H, Platelet Count 204, Mean Platelet Volume 7.0, Neutrophils (%) (Auto) 60.8, Lymphocytes (%) (Auto) 31.7, Monocytes (%) (Auto) 5.7, Eosinophils (%) (Auto) 0.7, Basophils (%) (Auto) 1.2, Sodium Level 140, Potassium Level 4.4, Chloride Level 98, Carbon Dioxide Level 29, Anion Gap 13, Blood Urea Nitrogen 14, Creatinine 1.2H, Estimat Glomerular Filtration Rate 48.6, Glucose Level 213H, Calcium Level 8.5L, Phosphorus Level 2.8, Magnesium Level 1.2L, Total Bilirubin 0.7, Aspartate Amino Transf (AST/SGOT) 58H, Alanine Aminotransferase (ALT/SGPT) 38H, Alkaline Phosphatase 128H, Total Protein 6.0L, Albumin 3.3L, Globulin 2.7, Albumin/Globulin Ratio 1.2 Current Medications Medications (Trade) Dose Ordered Sig/Umesh Route PRN Reason Start Time Stop Time Status Last Admin Dose Admin Acetaminophen (Tylenol) 650 mg Q4H PRN ORAL T>100.5 12/09/16 11:30 01/08/17 11:29 Albuterol/ Ipratropium 3 ml 3 ml Q4H PRN HHN Shortness of Breath 12/09/16 11:30 12/14/16 11:29 Benazepril HCl (Lotensin) 20 mg DAILY ORAL 12/10/16 16:00 01/09/17 15:59 12/12/16 08:47 Dextrose (Dextrose 50%) STAT PRN IV Hypoglycemia 12/09/16 11:30 01/08/17 11:29 Dextrose/ Electrolytes (D5 0.45%NS w/ KCl 40meq 1000ml) 1,000 ml @ 75 mls/hr [id number] IV 12/10/16 16:00 01/09/17 15:59 12/12/16 08:33 Heparin Sodium (Porcine) (Heparin 5000 units/ml) 5,000 units EVERY 12 HOURS SUBQ 12/09/16 21:00 01/08/17 20:59 12/12/16 08:48 Insulin Human Regular (NovoLIN R) 5 units PRN PRN IV BS 200-299 12/09/16 11:30 01/08/17 11:29 Insulin Human Regular (NovoLIN R) 10 units PRN PRN IV BS=>300 12/09/16 11:30 01/08/17 11:29 12/09/16 17:04 Insulin Human Regular/Sodium Chloride (NovoLIN R/ Sodium Chloride) 101 ml @ 0 mls/hr Q24H IV 12/11/16 02:45 01/10/17 02:44 12/12/16 05:34 Labetalol HCl (Normodyne) 20 mg Q4H PRN IV For High Blood Pressure 12/10/16 16:00 01/09/17 15:59 Lorazepam (Ativan 2mg/ml 1ml) 2 mg Q2H PRN IV agitation 12/09/16 11:30 12/16/16 11:29 Miscellaneous Medication (Insulin Rate Change) 1 ea PRN PRN MISC To Patient Comfort 12/09/16 11:30 01/08/17 11:29 12/12/16 09:10 Morphine Sulfate (Morphine Sulfate) 4 mg Q4H PRN IVP Severe Pain (Pain Scale 7-10) 12/09/16 11:30 12/16/16 11:29 Nitroglycerin (Ntg) 0.4 mg Q5M PRN SL Prn Chest Pain 12/09/16 11:30 01/08/17 11:29 Ondansetron HCl (Zofran) 4 mg Q6H PRN IVP Nausea & Vomiting 12/09/16 11:30 01/08/17 11:29 12/10/16 09:40 Pantoprazole 40 mg 40 mg DAILY ORAL 12/11/16 09:00 01/10/17 08:59 12/12/16 08:47 Polyethylene Glycol (Miralax) 17 gm DAILYPRN PRN ORAL Constipation 12/09/16 11:30 01/08/17 11:29 LIZZIE BOWERS Dec 12, 2016 11:49
[2016-12-12] MEDS ORDERED: Labetalol 5mg/ml 20ml vial IV PRN (16:00)
[2016-12-12] MEDS ORDERED: DuoNeb 0.5-3(2.5)mg/3ml neb HHN PRN (16:00)
[2016-12-12] MEDS ORDERED: Nitroglycerin Subl 0.4mg tab (Bottle Of 25) SL PRN (16:00)
[2016-12-12] MEDS ORDERED: Morphine Sulfate 4mg/ml Inj IVP PRN (16:00)
[2016-12-12] MEDS ORDERED: NovoLOG Insulin Flexpen SUBQ SCH (16:30)
[2016-12-12] MEDS: NovoLOG Insulin Flexpen SUBQ SCH ×2 (17:41→22:16)
[2016-12-12] MEDS ORDERED: Levemir Flexpen SUBQ SCH (21:00)
[2016-12-12] MEDS: Levemir Flexpen SUBQ SCH (22:15)
[2016-12-13] VITALS: BP 128/71
[2016-12-13 03:56] VITALS: BP 104/61
[2016-12-13] MEDS: NovoLOG Insulin Flexpen SUBQ SCH ×2 (06:28→11:38)
[2016-12-13 07:46] VITALS: BP 130/80
[2016-12-13] MEDS: Heparin 5000 units/ml inj SUBQ SCH (08:47)
[2016-12-13] MEDS: Levemir Flexpen SUBQ SCH (08:48)
[2016-12-13] MEDS ORDERED: Miralax 17gm pkt ORAL PRN (09:00)
[2016-12-13] MEDS ORDERED: Benazepril 10mg tab ORAL SCH (09:00)
[2016-12-13 11:49] VITALS: BP 129/84
--- NOTE | 2016-12-13 17:06 | Cardiology Report ---
APPROVED REPORT EKG Measurement Heart [id number] N[address] abnormality Abnormal QRS-T angle, consider primary T wave abnormality Prolonged QT Abnormal ECG
[2016-12-14] MEDS ORDERED: LEVEMIR FL100 UNIT/1 SUBQ (09:55)
[2016-12-14] MEDS ORDERED: NOVOLOG100 UNIT/3 SUBQ (09:55)
--- NOTE | 2016-12-14 10:02 | Discharge Summary ---
Discharge Summary Hospital Course Date of Admission Dec 09, 2016 at 09:58 Date of Discharge Dec 13, 2016 at 15:25 Admitting Diagnosis DIABETIC KETOACIDOSIS REINA Aguilar is a 46 year old female who was admitted on Dec 09, 2016 at 09:58 for Diabetic Ketoacidosis Hospital Course dc summary#[id number] Discharge Medications New Medications: Insulin Aspart* (Novolog*) 100 Unit/1 Ml Insuln.pen 0 SUBQ AC+HS, #1 EA 0 Refills as per sliding scale Insulin Detemir (Levemir Flexpen) 100 Unit/1 Ml Insuln.pen 14 UNIT SUBQ BID, #300 UNITS 0 Refills Discharge Condition Upon Discharge: stable Discharge Disposition Patient was discharged to Home (01) Discharge Diagnoses: Discharge Instructions Discharge Instructions Special Instructions I have been assigned to complete a D/C Summary on this account. I was not involved in the patient management Karina Parr NP ([place]) Dec 14, 2016 10:02
--- NOTE | 2016-12-14 23:18 | Discharge Summary 2 SIG ---
DATE OF ADMISSION: 12/09/2016 DATE OF DISCHARGE: 12/13/2016 REASON FOR ADMISSION: 46-year-old female with history of diabetes mellitus type 1, uncontrolled, presented with generalized weakness. Patient was being uncomfortable and agitated in ED. She was refusing to answer many of the questions. According to the patient, she did not take any insulin because she ran out of it. She denied chest pain and shortness of breath. Denied diarrhea but admitted due to diffuse abdominal cramping and discomfort. The patient reported increased nausea. Workup in the emergency room revealed glucose level of 1041. No fevers, pulse 114 and respiratory rate 22. The patient had leukocytosis - 26.3. Urinalysis revealed +4 ketones, +4 glucose, +2 protein, +3 occult blood, but no evidence of urinary tract infection. Pulse oximetry was stable on the room air. No fevers. Lactic acid was within normal limits. ABG revealed acute metabolic acidosis with bicarbonate of 2.6 and pH of 6.93. BUN was 49, creatinine 2.5, and sodium 129. Lipase and LFTs were within normal limits. EKG revealed sinus tachycardia. No ischemic changes. The patient was started on IV fluids and insulin drip as per protocol and transferred to ICU for further management. ADMITTING DIAGNOSES: 1. Diabetes ketoacidosis. 2. Hyperosmolality due to the diabetes. 3. Diabetes mellitus, out of control. 4. Acute kidney injury. 5. Severe dehydration. 6. Noncompliance. HOSPITAL STAY: The patient was admitted initially to the intensive care unit. The patient was initially kept NPO. She started on aggressive IV hydration along with insulin drip as per protocol. Blood sugar was checked as per protocol. Initial anion gap - 45. When anion gap was closed on 12/12/2016, insulin drip was discontinued. Bicarbonate at that time was 29 and sodium 140. Renal parameters - down to baseline: BUN -14 and creatinine - 1.2. Insulin drip was stopped. The patient was switched to long-acting insulin and sliding scale of insulin as needed. Hemoglobin A1c - 13.4, clearly not at goal. The patient was counseled on consequences of untreated diabetes as well as the long-term complications of uncontrolled diabetes. The patient was urged to follow up with the primary medical doctor on a regular basis. Antiemetic provided as needed. Patient was able to tolerated diet. DVT prophylaxis was provided. Blood sugar stabilized. The patient has a history of hypertension. Blood pressure was stable in the hospital. The patient was on BUDDY inhibitor at home. At this point, BUDDY inhibitors were stopped due to the acute renal failure. Blood pressure remained stable. The patient was urged to follow up with the primary medical doctor to change for another choice of antihypertensive as needed. Leukocytosis resolved , No evidence of infection. Blood cultures were negative. Urinalysis was negative. No respiratory symptoms, no fevers. Leukocytosis likely reactive secondary to acute DKA. The patient was urged to comply with the medication regimen. The patient was stable for discharge. DISCHARGE DIAGNOSES: 1. Diabetes ketoacidosis,- resolved. 2. Hyperosmolality due to diabetes. 3. Diabetes mellitus, out of control. 4. Acute kidney injury, -resolved. 5. Severe dehydration, -resolved. 6. History of hypertension. 7. Noncompliance. DISCHARGE MEDICATIONS: See medication reconciliation list. The patient was discharged on long-acting insulin and sliding scale of insulin as needed likely will need to titrate pre-meals insulin with a close follow up with the primary medical doctor in order to bring hemoglobin A1c under control. DISCHARGE INSTRUCTIONS: The patient to follow up with the primary medical doctor next week. Encouraged compliance. Domenica Vivas M.D. I have been assigned to dictate discharge summary on this account and I was not involved in the patient's management. Karina MunsonMount Vernon HospitalEmma NIsaak DR: SHANTHI JOB#: [id number] CC: KATHIE
== END 2016-12-13 15:25 | disposition home or self-care (01) | DRG 420 ==
LOC: EDBD 08:19 → EMR 09:07 → ICU 09:58 → EDBEDREQ 10:39 → 4W 12-12 15:40
DX: E10.11 Type 1 diabetes mellitus with ketoacidosis with coma (principal); N17.9 Acute kidney failure, unspecified; E86.0 Dehydration; I10 Essential (primary) hypertension; Z91.14 Patient's other noncompliance with medication regimen
CPT/HCPCS: 36415; 36600; 80053; 80076; 81003; 82803; 82962; 83036; 83605; 83690; 83735; 84100; 85007; 85025; 85610; 85730; 87040; 87081; 93005; J1815; J2405; J8499; S5561